=== PATIENT | male | born 1980 | race African-American/Black ===

== ENCOUNTER 2017-03-12 11:44 | Emergency (ER) | payer OTHER ==
[~2017-03-12] VITALS: Ht 177.8 cm; Wt 66.0 kg
[2017-03-12 11:53] VITALS: BP 152/106
[2017-03-12] MEDS ORDERED: KETOROLAC 30 MG/1 ML ONE (12:44)
[2017-03-12] MEDS ORDERED: KETOROLAC 30 MG/1 ML IM ONE (13:00)
== END 2017-03-12 14:22 | disposition home or self-care (01) ==
LOC: ED 14:16
DX: M54.5 Low back pain (principal)
CPT/HCPCS: 72110; 96372; 99284; J1885